=== PATIENT | female | born 1955 | race Two or more races ===

== ENCOUNTER → 2020-09-22 | Outpatient (CLI) | payer SELFPAY | END | disposition home or self-care (01) | LOC: Rad HDHVI 12:57 | PROVIDERS: ATTEND Internal Medicine | DX: I70.0 Atherosclerosis of aorta (principal); R06.02 Shortness of breath; M47.814 Spondylosis without myelopathy or radiculopathy, thoracic region | CPT/HCPCS: 71046 ==

== ENCOUNTER → 2021-06-20 | Outpatient (CLI) | payer SELFPAY | END | disposition home or self-care (01) | LOC: Rad HDHVI 11:27 | PROVIDERS: ATTEND Internal Medicine Cardiovascular Disease | DX: M19.012 Primary osteoarthritis, left shoulder (principal); M85.812 Other specified disorders of bone density and structure, left shoulder; M75.32 Calcific tendinitis of left shoulder | CPT/HCPCS: 73030 ==

== ENCOUNTER → 2022-12-13 | Outpatient (CLI) | payer MEDICARE, OTHER | END | disposition home or self-care (01) | LOC: Rad HDHVI 13:03 | PROVIDERS: ATTEND Internal Medicine Cardiovascular Disease | DX: M25.571 Pain in right ankle and joints of right foot (principal); M25.561 Pain in right knee; I10 Essential (primary) hypertension | CPT/HCPCS: 73562; 73610; 93880 ==

== ENCOUNTER → 2023-11-27 | Outpatient (CLI) | payer MEDICARE ==
[~2023-11-27] MED LIST: IOHEXOL 350 MG/ML 100ML IJ ONE; READI-CAT 2 (BARIUM SULF)(VANILLA SMOOTHIE) 450ML ONE
[2023-11-27 11:03] VITALS: BP 124/64; PULSE 68; RESP 18; O2SAT 98
[2023-11-27 11:30] VITALS: BP 156/68; PULSE 69; RESP 18; O2SAT 98
[2023-11-27] MEDS: MULTIPLE VIT 10 ML IV ONE (12:28)
[2023-11-27] MEDS: PIPERACILLIN-TAZO 4.5GM 100 ML IV ONE ×2 (12:28→14:32)
[2023-11-27] MEDS: MVI in SODIUM CHLORIDE 0.9% 500 ML IVB ONE (12:30)
[2023-11-27 16:12] VITALS: BP 144/68; PULSE 63; RESP 18; O2SAT 98
[2023-11-27 17:00] LABS: Basophils # (auto) 0.1 10 ^3/uL (0-0.2); Basophils % (auto) 0.8 % (0.0-2.0); Eosinophils # (auto) 0.1 10 ^3/uL (0-0.8); Eosinophils % (auto) 1.6 % (0.0-7.0); Hematocrit 37.9 % (36.0-46.0); Hemoglobin 12.5 g/dL (12.2-16.2); Lymphocytes # (auto) 3.2 10 ^3/uL (0.4-5.4); Lymphocytes % (auto) 43.7 % (10.0-50.0); Mean Corpuscular Hemoglobin 29.1 pg (28.0-32.0); Mean Corpuscular Volume 88.1 fL (80.0-100.0); Monocytes # (auto) 0.7 10 ^3/uL (0-1.3); Monocytes % (auto) 9.3 % (0.0-12.0); Neutrophils # (auto) 3.3 10 ^3/uL (1.6-8.6); Neutrophils % (auto) 44.6 % (37.0-80.0); Nucleated Red Blood Cells % 0.1 %; Red Cell Distribution Width 13.5 % (11.8-14.3); White Blood Cell 7.3 10^3/uL (4.4-10.8)
[2023-11-27 17:06] LABS: Chloride 104 mmol/L (98-107); Potassium 3.4 mmol/L (3.5-5.1); Sodium 140 mmol/L (136-145)
[2023-11-27 17:07] LABS: Anion Gap 6 (5-15); Calcium 8.8 mg/dL (8.7-10.4); Carbon Dioxide 30 mmol/L (20-30)
[2023-11-27 17:12] LABS: BUN/Creatinine Ratio 11.8 (10.0-20.0); Blood Urea Nitrogen 10 mg/dL (9-23); Glucose 83 mg/dL (74-106); Triglycerides 156 mg/dL (< 150)
[2023-11-27 17:13] LABS: LDL Cholesterol 134 mg/dL (< 100)
[2023-11-27 17:14] LABS: Cholesterol 175 mg/dL (< 200); HDL Cholesterol 29 mg/dL (40-59)
== END | disposition home or self-care (01) ==
LOC: Rad HDHVI 10:21
PROVIDERS: ATTEND Internal Medicine Cardiovascular Disease
DX: E86.0 Dehydration (principal); R10.9 Unspecified abdominal pain; I10 Essential (primary) hypertension; Z79.899 Other long term (current) drug therapy
CPT/HCPCS: 36415; 74177; 80048; 80061; 83036; 84443; 85025; 96365; 96366; 96367; G0463; J2543; J7040; Q9967; 96360; 96361